=== PATIENT | female | born 1980 | race Hispanic/Latino ===

== ENCOUNTER 2025-04-05 08:36 | Day surgery (SDC) | payer BC ==
[~2025-04-05] VITALS: Ht 170.2 cm; Wt 102.0 kg
[~2025-04-05 08:36] MED LIST: ADVIL200 M1 PO; HEParin SOD (PORCINE) 5,000 UNIT/ML SDV SUB-Q SCH; IBLOOD GLUCOSE TEST STRIP 1 EA TEST VI PRN; LACTATED RINGER'S 1,000 ML IV SCH; LIDOCAINE HCL 1% 5 ML SDV INJ ONE
[2025-04-05 09:27] VITALS: BP 120/69
[2025-04-05 09:27] LABS: MCH 28.6 PG (25.6-32.2); MCHC 33.7 g/dL (32.2-35.5); MCV 84.8 fL (79.4-94.8); RBC 4.34 M/uL (3.93-5.22)
[2025-04-05] MEDS ORDERED: POTASSIUM99 M3 PO (09:27)
[2025-04-05] MEDS ORDERED: MAGNESIUM250 MG PO (09:27)
[2025-04-05] MEDS ORDERED: VITAMIN B122500 MCG PO (09:27)
[2025-04-05] MEDS ORDERED: KETOROLAC TROMETHAMINE 30 MG/ML VIAL ONE (12:41)
[2025-04-05] MEDS ORDERED: fentaNYL citrate 100 MCG/2 ML VIAL ONE (12:41)
[2025-04-05] MEDS ORDERED: ACETAMINOPHEN 1,000 MG/100 ML VIAL ONE (12:41)
[2025-04-05] MEDS ORDERED: MIDAZOLAM HCL 2 MG/2 ML VIAL ONE (12:41)
[2025-04-05] MEDS ORDERED: LIDOCAINE HCL 2% 5 ML SDV ONE (12:41)
[2025-04-05] MEDS ORDERED: LIDOCAINE HCL 1% 30 ML SDV ONE (12:55)
[2025-04-05] MEDS ORDERED: DEXAMETHASONE SOD PHOS 4 MG/ML VIAL ONE (13:16)
--- NOTE | 2025-04-05 14:29 | NUR ---
04/05/25 1429 Celeste Aly 1422-PATIENT ARRIVED TO PACU ON 6L MASK RR EVEN PATIENT HAS EYESBROWS WINCED LEFT HAND TO FACE EYES CLOSED SINUS BRADYCARDIA HR 50'S. IVF INFUSING. PASTOR PAD IN PLACE WITH MESH UNDERWEAR INTACT. 1428-DR. MCDONALD AT BEDSIDE PATIENT TO [facility] HOME AROUND 1600 TODAY. EYES CLOSED 6L MASK RR EVEN 100%
[2025-04-05] MEDS ORDERED: HYDROmorphone HCL 1 MG/ML SYR IV PRN (14:30)
[2025-04-05] MEDS ORDERED: fentaNYL citrate 50 MCG/ML SDV IV PRN (14:30)
[2025-04-05] MEDS ORDERED: IBLOOD GLUCOSE TEST STRIP 1 EA TEST VI PRN (14:30)
[2025-04-05] MEDS ORDERED: NALOXONE HCL 0.4 MG SYR IV PRN ×2 (14:30→15:15)
[2025-04-05] MEDS ORDERED: PROCHLORPERAZINE EDISYLATE 10 MG/2 ML VIAL IV PRN ×2 (14:30→15:15)
[2025-04-05 15:10] VITALS: BP 122/64
[2025-04-05] MEDS ORDERED: OXYCODONE/APAP 5/325 TAB PO PRN (15:15)
[2025-04-05] MEDS ORDERED: FAMOTIDINE 20 MG/ 2 ML VIAL IV PRN (15:15)
[2025-04-05] MEDS ORDERED: MAGNESIUM HYDROXIDE/AL HYDROX 30 ML CUP PO PRN (15:15)
[2025-04-05] MEDS ORDERED: SIMETHICONE 80 MG CHEW PO PRN (15:15)
--- NOTE | 2025-04-05 15:25 | NUR ---
1510-PT BACK TO ROOM FROM PACU ON RA. RECEIVED REPORT FROM FABRICIO HARVEY. PT IS AWAKE. RESP EVEN AND UNLABORED. RATES PAIN 4/10. DENIES NAUSEA. PT IS DRINKING WATER. PROVIDED PT WITH APPLESAUCE AND CRACKERS. PT WOULD LIKE SOMETHING FOR PAIN. FAMILY IN ROOM. CALL LIGHT WITHIN REACH.
[2025-04-05 16:07] VITALS: BP 136/67
--- NOTE | 2025-04-05 16:10 | NUR ---
1600-PT SITTING AT BEDSIDE. DENIES BEING DIZZY. 1602-PT AMBULATES TO RESTROOM. GAIT STEADY AND TOLERATED WELL. PT ABLE TO VOID. PT STATES SMALL AMOUNT OF BLOOD WHEN WIPING. 1607-PT BACK TO ROOM SITTING AT BEDSIDE. PT READAY TO GO HOME. PT WILL GET DRESSED. FAMILY IN ROOM
--- NOTE | 2025-04-05 16:29 | NUR ---
1621-WENT OVER DISCHARGE INSTRUCTIONS WITH PT AND FAMILY. WENT OVER POSTOP MEDICATIONS. ALL QUESTIONS ANSWERED. 1625-PT AMBULATES TO WHEELCHAIR. RIDE PROVIDED TO FRONT OF HOSPITAL WHERE FAMILY WAS WAITING WITH THE CAR.
[2025-04-05] MEDS ORDERED: SIMETHICONE 80 MG CHEW PO SCH (17:00)
--- NOTE | 2025-04-10 20:21 | OR ---
[facility] [address] [place] [id number] Signed DATE OF OPERATION: 04/05/2025 SURGEON: Russell Olivo DO PREOPERATIVE DIAGNOSES: 1. BRIANDA 3. 2. Abnormal uterine bleeding. 3. Endometrial polyp. POSTOPERATIVE DIAGNOSES: 1. BRIANDA 3. 2. Abnormal uterine bleeding. 3. Endometrial polyp. PROCEDURES PERFORMED: 1. Cold knife conization of the cervix. 2. Hysteroscopy, D and C. HVAC R INSTRUCTOR: None. ANESTHESIA: MAC. ESTIMATED BLOOD LOSS: 125 mL. SPECIMENS: 1. Conization biopsy of the cervix marked at 12 o'clock. 2. Endocervical curettage. 3. Endometrial curettings and polyp. DRAINS: None. COMPLICATIONS: None. FINDINGS: Normal external genitalia with normal clitoris, urethral meatus, bilateral [place]'s and Electronically Signed By: RUSSELL OLIVO DO (JD) 04/10/252020 PATIENT NAME: BROWN STORMPE OPERATIVE REPORT DATE OF : 80 REPORT #: [id number] PHYSICIAN: RUSSELL OLIVO DO (JD) PCP: DIANA JOE REPORT IS CONFIDENTIAL AND NOT TO BE RELEASED WITHOUT AUTHORIZATION [address] [address] Signed Bartholin's glands. Normal vagina and cervix with somewhat widened squamocolumnar junction. On hysteroscopy, thickened endometrium with endometrial polyp noted. Scientologist of normal uterine architecture at the end of the procedure. INDICATIONS: Ms. Lolly Oleary is a very pleasant 45-year-old female, who presents with abnormal Pap and abnormal bleeding. The patient has had abnormal Paps for many years and most recently had a cervical biopsy demonstrating BRIANDA 3. She had abnormal uterine bleeding as well and ultrasound demonstrated thickened endometrium with endometrial polyp. She has consented for hysteroscopy, D and C and cold knife conization of the cervix. Risks, benefits, and alternatives were discussed in detail with the patient. The patient understands and wishes to proceed with the procedure. DESCRIPTION OF PROCEDURE: The patient was taken to the OR where time-out was performed to confirm correct patient and correct procedure. MAC anesthesia was adequately established. The patient was prepped and draped in the dorsal lithotomy position with her feet in Yellofin stirrups. ICPs were on and running and no preoperative antibiotics or heparin was indicated. The bladder was drained. A weighted speculum was placed into the vagina and the anterior lip of the cervix was grasped with single-tooth tenaculum. Cervix was gently dilated using Hegar dilators. An operative hysteroscope was then placed in the cervical os and advanced under direct visualization to the uterine cavity. Thickened endometrium with endometrial polyp noted. Normal tubal ostia bilaterally. MyoSure Lite device was selected and circumferential curettage and polypectomy was performed under direct visualization without complication. The hysteroscope was withdrawn and the fluid deficit was negligible. Attention was then turned to the cone. Careful evaluation of the squamocolumnar junction was performed and then stay sutures of 0 chromic were placed at 3 o'clock and 9 o'clock. The cervix was again carefully evaluated and a #11 blade was used to scribe just distal to the squamocolumnar junction circumferentially. Uterine sound was then used to delineate the internal os and cone biopsy was performed excising all squamocolumnar junction just distal to the internal os. The cone biopsy was then marked at 12 o'clock and sent to pathology for further evaluation. Endocervical curettage was performed and sent to pathology for further evaluation. The bed of the cone biopsy was then fulgurated using ball tip cautery with good hemostasis. Monsel's solution was then placed and Gel-Foam was applied. Small amount of oozing was noted. The stay sutures were plicated and pressure was held for approximately 5 minutes. Oozing was continued to be noted and stay suture was cut. Gelfoam was removed and additional cautery performed to the cervix as there was a small area of bleeding distal and right lateral. Excellent hemostasis was appreciated. Monsel's solution and Gelfoam were again reapplied to the cervix. New stay sutures at the 3 and 9 o'clock were placed and Gel-Foam was placed in the cervical os. Stay sutures were plicated with hemostasis appreciated. The patient was then taken to the PACU in good Electronically Signed By: RUSSELL CARTY) DO AHRRY 04/10/252020 PATIENT NAME: BROWN STORM OPERATIVE REPORT DATE OF : 80 REPORT #: [id number] PHYSICIAN: RUSSELL OLIVO) PCP: DIANA JOE REPORT IS CONFIDENTIAL AND NOT TO BE RELEASED WITHOUT AUTHORIZATION [facility] [address] [place] [id number] Signed and stable condition. Sponge, needle and instrument counts were correct x2 at the end of procedure. Russell Olivo DO JJARROD/MODL /[id number] Copies: ~ Electronically Signed By: RUSSELL OLIVO DO (JD) 04/10/252020 PATIENT NAME: BROWN STORM NIRMAL OPERATIVE REPORT DATE OF : 80 REPORT #: [id number] PHYSICIAN: RUSSELL OLIVO DO (JD) PCP: DIANA JOE REPORT IS CONFIDENTIAL AND NOT TO BE RELEASED WITHOUT AUTHORIZATION
--- NOTE | 2025-04-11 14:02 | PATH ---
[facility] [address] [place], [place] [address] Signed SPECIMEN(S): A ENDOMETRIAL CURETTINGS SPECIMEN(S): B CERVIX CONE BIOPSY, 12 O'CLOCK SPECIMEN(S): C ENDOCERVICAL CURETTINGS SPECIMEN SOURCE: A. ENDOMETRIAL CURETTINGS B. CERVIX CONE BIOPSY, 12 O'CLOCK C. ENDOCERVICAL CURETTINGS CLINICAL HISTORY: BRIANDA-3, endometrial polyp, dysmenorrhea FINAL PATHOLOGIC DIAGNOSIS: A. Endometrial curettings: - Proliferative endometrium, negative for atypia or hyperplasia. - Morphologic features consistent with adenomyosis B. Cervical biopsy, LEEP: - Moderate to severe dysplasia, BRIANDA-2�BRIANDA-3 - Negative for invasive component. - Margins of resection are free of dysplasia. C. ECC - Endocervical tissue, negative for dysplasia. NA MICROSCOPIC EXAMINATION: Histologic sections of all submitted blocks are examined by light microscopy. These findings, together with the gross examination, support the pathologic diagnosis. GROSS DESCRIPTION: A. The specimen, labeled and designated "Sheila Che, endometrial curettings per requisition," is received in formalin and consists of a 2.7 x 2.2 x 0.3 cm aggregate of johnson-brown tissue fragments. The specimen is filtered through a mesh bag and entirely submitted in cassette A1. B. The specimen, labeled and designated "Sheila Che, cervical biopsy marked at 12:00 per requisition," is received in formalin and consists of a 2.2 x 2 x 1.9 cm cone-shaped biopsy of pink johnson soft tissue with a mucosal surface. There is a suture marking the 12:00 position. The endocervical margin is inked blue and the deep/ectocervical margin is inked black. There are no discrete PATIENT NAME: BROWN CHE PATHOLOGY DATE OF : 80 REPORT #: [id number] PHYSICIAN: YARELY PATHOLOGY PCP: DIANA JOE REPORT IS CONFIDENTIAL AND NOT TO BE RELEASED WITHOUT AUTHORIZATION [facility] [address] [place], [place] [address] Signed masses. The specimen is entirely submitted as follows: Cassette Summary: (B1) 12 to 3 o'clock (B2) 3 to 6 o'clock (B3) 6 to 9 o'clock (B4) 9 to 12 o'clock C. The specimen, labeled and designated "Lolly Oleary JoeyEla, ECC per requisition," is received in formalin and consists of 0.6 x 0.6 x 0.1 cm aggregate of johnson-brown tissue fragments. The specimen is filtered through a mesh bag and entirely submitted in cassette C1. AA (under the direct supervision of a pathologist) The Gross Description was prepared using a voice recognition system. The report was reviewed for accuracy; however, sound-alike word errors, addition and/or deletions may occur. If there is any question about this report, please contact Client Services. ADDITIONAL NOTES: Immunohistochemical and/or in situ hybridization studies if performed in this case included appropriate positive controls that reacted as expected. This test was developed and its performance characteristics determined by [facility]. It has not been cleared or approved by the U.S. Food and Drug Administration. The FDA has determined that such clearance or approval is not necessary. This test is used for clinical purposes. It should not be regarded as investigational or for research. [facility] is certified under the Clinical Laboratory Improvement Amendments of 1988 (CLIA) as qualified to perform high complexity clinical laboratory testing. PERFORMING LABORATORY: Technical component was performed by [facility], [address] [place] [address] (CLIA# [id number]). Professional interpretation was performed by [facility] [address] [facility] [id number] Diagnostician: Arjun Cunningham MD Pathologist Electronically Signed 04/11/2025 Copies: PATIENT NAME: BROWN CHE PATHOLOGY DATE OF : 80 REPORT #: [id number] PHYSICIAN: YARELY PATHOLOGY PCP: DIANA JOE REPORT IS CONFIDENTIAL AND NOT TO BE RELEASED WITHOUT AUTHORIZATION [address] [place], [place] [address] Signed ~ PATIENT NAME: BROWN CHE PATHOLOGY DATE OF : [birth year] REPORT #: [id number] PHYSICIAN: YARELY VELAZQUEZ PCP: DIANA JOE REPORT IS CONFIDENTIAL AND NOT TO BE RELEASED WITHOUT AUTHORIZATION
== END 2025-04-05 16:21 | disposition home or self-care (01) ==
LOC: OPS 08:36 → DS 08:36 → OPS 10:15 → DS 10:15 → OPS 12:05
PROVIDERS: ATTEND Obstetrics & Gynecology
PROC: 0UB98ZZ Excision of Uterus, Via Natural or Artificial Opening Endoscopic (ICD-10-PCS; principal; 2025-04-05 12:05)
PROC: 0UBC7ZZ Excision of Cervix, Via Natural or Artificial Opening (ICD-10-PCS; 2025-04-05 12:05)
DX: D06.9 Carcinoma in situ of cervix, unspecified (principal); N93.9 Abnormal uterine and vaginal bleeding, unspecified; N84.0 Polyp of corpus uteri
CPT/HCPCS: 00952; 36415; 84703; 85027; J0131; J1100; J1644; J1885; J2003; J2250; J2405; J2704; J3010; J7121